=== PATIENT | male | born 1995 | race Caucasian/White ===

== ENCOUNTER → 2018-03-04 | Outpatient (CLI) | payer OTHER ==
--- NOTE | 2018-03-04 10:30 | DIAGNOSTIC IMAGING REPORT ---
(TESTICULAR) SCROTUM-CONT CLINICAL HISTORY: 22 years-old Male with R LATERAL TESTICULAR MASS. Acute palpable abnormality of the right testicle COMPARISON STUDY: None available TECHNIQUE: Real-time, grayscale, and color Doppler sonography of the testes and scrotum is performed. Images are reviewed in the transverse and longitudinal planes. FINDINGS: RIGHT HEMISCROTUM: The right testis measures 5.3 x 2.3 x 3.3 cm and the parenchyma appears mildly heterogeneous throughout. Ill-defined area of decreased echogenicity within the mid to upper right testicle is noted on image 18 measuring up to 0.3 cm without definable internal flow. Normal-appearing arterial inflow is present within the right testicle. There is a 0.3 cm cystic lesion adjacent to the lower right testicle seen on image 22 correlating with area of palpable concern. The right epididymal head appears normal. No varicocele or hydrocele is identified. 0.5 cm scrotal lith on the right. LEFT HEMISCROTUM: The left testis measures 5.1 x 2.3 x 3.1 cm and the parenchyma also appears mildly heterogeneous. No intratesticular mass is seen. Normal-appearing arterial inflow is present within the left testicle. Small left epididymal head cyst, 0.5 cm. 0.3 cm scrotal lith. No varicocele or hydrocele is identified. IMPRESSION: 1. 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 2. Nonspecific mildly heterogeneous appearance of the bilateral testicles with an ill-defined 0.3 cm focus within the mid to upper right testicle. This likely reflects an additional area of heterogeneous parenchyma, however a 3 month follow-up testicular ultrasound is recommended to exclude progressive abnormality. 3. Bilateral scrotal liths. 4. Subcentimeter left epididymal head cyst. The above report was generated using voice recognition software. It may contain grammatical, syntax or spelling errors. Electronically signed by: Devin Gimenez M.D. 03/04/2018 10:29 AM Dictated Date/Time: 03/04/2018 10:23 AM
== END | disposition home or self-care (01) ==
LOC: C.ULTRBC 08:33
PROVIDERS: ATTEND Family Medicine
DX: N44.1 Cyst of tunica albuginea testis (principal); N50.3 Cyst of epididymis; N50.89 Other specified disorders of the male genital organs

== ENCOUNTER → 2018-03-23 | Outpatient (CLI) | payer OTHER ==
--- NOTE | 2018-03-23 08:21 | DIAGNOSTIC IMAGING REPORT ---
(TESTICULAR) SCROTUM-CONT CLINICAL HISTORY: 22 years-old Male presenting with N50.9 Testicular [id number]. TECHNIQUE: Real-time grayscale and color and spectral Doppler ultrasound imaging of the scrotum was performed. COMPARISON: 03/04/2018. FINDINGS: Right testis: Mildly heterogeneous parenchyma. Tunica albuginea cyst noted. Focal 4 mm hypoechoic region at the upper pole without peripheral hyperemia. Several scrotoliths also apparent. Testis measures 5.4 x 2.2 x 3.5 cm. Normal color Doppler flow and arterial and venous waveforms in the testicular parenchyma. Epididymal head normal. No hydrocele. No varicocele. Left testis: Mildly heterogeneous parenchyma. Testis measures 5.3 x 2.6 x 3.7 cm. Normal color Doppler flow and arterial and venous waveforms in the testicular parenchyma. 5 mm cyst in the epididymal head, either spermatocele or epididymal cyst. No hydrocele. No varicocele. Symmetric perfusion of the testes. IMPRESSION: 1. No evidence of testicular torsion. 2. Unilateral subcentimeter hypoechoic lesion in the right testis is indeterminate. Differential considerations include neoplastic and nonneoplastic etiologies. Abscess is considered highly unlikely. Urologic consultation recommended. Ultrasound follow-up is warranted. As stated in the initial report, a 3 month follow-up from February is recommended, which should be no later than in April. The report will be called/faxed according to standard departmental protocol. Electronically signed by: Virgil Lopez M.D. 03/23/2018 8:19 AM Dictated Date/Time: 03/23/2018 8:14 AM
== END | disposition home or self-care (01) ==
LOC: C.ULTR 07:39
PROVIDERS: ATTEND Urology
DX: N50.9 Disorder of male genital organs, unspecified (principal)